=== PATIENT | female | born 1995 | race Caucasian/White ===

== ENCOUNTER 2016-12-12 10:51 | Emergency (ER) | payer MEDICAID, OTHER ==
[~2016-12-12] VITALS: Ht 157.5 cm; Wt 59.0 kg
[~2016-12-12 10:51] MED LIST: ANAP550T PO; PREN0.01 PO; SENN1TAB11 PO
[2016-12-12 10:54] VITALS: BP 124/74; PULSE 91; RESP 15; TEMP 98.1; O2SAT 98
[2016-12-12] MEDS ORDERED: IPRA0.06 EACH NARE (11:51)
[2016-12-12] MEDS ORDERED: AMOX875T PO (11:51)
--- NOTE | 2016-12-12 11:51 | PD ---
HPI Chief Complaint: Cold / Flu Symptoms Time Seen by Provider: 11:46 Travel History International Travel<30 days: No Contact w/Intl Traveler<30days: No Traveled to known affect area: No History of Present Illness HPI Patient's 21-year-old female presenting to emergency Department with 8 days of nasal congestion, cough, sinus pressure. Patient denies any documented fevers, nausea, vomiting, abdominal pain, chest pain or shortness of breath. Patient states she's been using NyQuil with no relief of her symptoms. She has no other complaints at this time. [facility] Past Medical History Medical History: Denies Significant Hx ?: Not LMP: UNKNOWN - IUD Social History Alcohol Use: No Tobacco Use: Yes Substance Use: No Allergies-Medications (Allergen,Severity, Reaction): Coded Allergies: No Known Allergies (Unverified , 08/29/13) Reported Meds & Prescriptions Reported Meds & Active Scripts Active Reported Vesna-Colace (Senna/Docusate Sodium) 1 Tab Tab 2 Tab PO HS Vesna-Colace (Senna/Docusate Sodium) 1 Tab Tab 1 Tab PO BID Anaprox Ds (Naproxen Sodium) 550 Mg Tab 550 Mg PO BID Vit ( Plus) (Prenat Multivit/Osage/Iron/Folic Ac) Tab 1 Tab PO DAILY Review of Systems Except as stated in HPI: all other systems reviewed are Neg General / Constitutional: No: Fever, Chills HENT: Positive: Headaches, Rhinitis, Congestion, No: Neck Stiffness, Neck Pain Cardiovascular: No: Chest Pain or Discomfort Respiratory: Positive: Cough, No: Shortness of Breath, Wheezing Gastrointestinal: No: Nausea, Vomiting, Diarrhea, Abdominal Pain Musculoskeletal: No: Myalgias Physical Exam Narrative GENERAL: Well-nourished, well-developed patient. SKIN: Warm and dry. HEAD: Normocephalic. Mild tenderness to palpation over ethmoid and maxillary sinuses. EYES: No scleral icterus. No injection or drainage. ENT: Mucosa pink and moist. No erythema or exudates. No uvular edema. No uvular , palatal, or tonsillar deviation. Airway patent. Nasal turbinates appear normal without nasal blood, purulent drainage or septal hematoma. Cobblestone appearance posterior pharynx NECK: Supple, trachea midline. No JVD or lymphadenopathy. CARDIOVASCULAR: Regular rate and rhythm without murmurs, gallops, or rubs. RESPIRATORY: Breath sounds equal bilaterally. No accessory muscle use. GASTROINTESTINAL: Abdomen soft, non-tender, nondistended. MUSCULOSKELETAL: No cyanosis, or edema. BACK: Nontender without obvious deformity. No CVA tenderness. Data Data Last Documented VS Vital Signs Date Time Temp Pulse Resp B/P Pulse Ox O2 Delivery O2 Flow Rate FiO2 12/12/16 10:54 98.1 91 15 124/74 98 [facility] Medical Decision Making Medical Screen Exam Complete: Yes Emergency Medical Condition: Yes Interpretation(s) Vital Signs Date Time Temp Pulse Resp B/P Pulse Ox O2 Delivery O2 Flow Rate FiO2 12/12/16 10:54 98.1 91 15 124/74 98 Differential Diagnosis Viral URI versus bronchitis versus pneumonia versus sinusitis versus pharyngitis Narrative Course Patient is a 21-year-old female presenting to the emergency department for evaluation of cold symptoms and ongoing for approximately 8 days. Patient has been taking [id number] medications with no significant relief of symptoms. Patient's vital signs are stable. Patient be given amoxicillin for sinusitis. She is encouraged to obtain [id number] Sudafed or similar agent. She is encouraged to follow up with her primary care provider or return to emergency department for any new or worsening symptoms. Patient verbalized understanding of instructions. Patient is stable for discharge. Diagnosis Primary Impression: Acute sinusitis Qualified Code: J01.90 - Acute sinusitis, recurrence not specified, unspecified location Referrals: Primary Care Physician Patient Instructions: General Instructions, Sinusitis (ED) Additional Instructions: Follow-up with a primary doctor Take medications as directed Complete full course of antibiotics as prescribed Obtain [id number] Sudafed or similar nasal decongestant and use as directed Return to emergency department for any new or worsening symptoms Med/Other Pt SpecificInfo: Prescription(s) given Scripts Ipratropium Nasal 0.06% Spray1 Volcano EACH NARE QID #1 BOTTLE Ref 0 For nasal congestion/rhinorrhea Prov:Sharmin Duran 12/12/16 Amoxicillin 875 Mg [id number] Mg PO BID 10 Days Ref 0 Prov:Sharmin Duran 12/12/16 Disposition: 01 DISCHARGE HOME Condition: Stable Sharmin Duran Dec 12, 2016 11:51
== END 2016-12-12 12:36 | disposition home or self-care (01) ==
LOC: NEPB 10:51
DX: J01.90 Acute sinusitis, unspecified (principal); Z72.0 Tobacco use
CPT/HCPCS: 99283

== ENCOUNTER 2016-12-16 19:07 | Emergency (ER) | payer SELFPAY ==
[~2016-12-16] VITALS: Ht 154.9 cm; Wt 59.0 kg
[~2016-12-16 19:07] MED LIST changes: +AMOX875T PO; -ANAP550T PO; +IPRA0.06 EACH NARE; -PREN0.01 PO; -SENN1TAB11 PO
[2016-12-16 19:09] VITALS: BP 124/69; PULSE 84; RESP 16; TEMP 98.4; O2SAT 99
--- NOTE | 2016-12-16 19:29 | PD ---
HPI Chief Complaint: Cold / Flu Symptoms Time Seen by Provider: 19:26 Travel History International Travel<30 days: No Contact w/Intl Traveler<30days: No Traveled to known affect area: No History of Present Illness HPI 21-year-old white female returns to the ER requesting reevaluation for a cold. She states that she's been sick nearly 2 weeks. She was seen on Tuesday given amoxicillin. She states that she has not improved in her symptoms. She states that she feels warm at times but has not documented a fever. She has headaches , runny nose, congestion, sinus pressure, sore throat, cough, some shortness of breath and wheezing, and posttussive emesis. She denies any nausea. No abdominal pain or diarrhea. No dysuria or frequency. She is a smoker. History Past Medical Histgory Narrative Medical Bronchitis Tetanus Vaccination: < 5 Years LMP: 01/10/17 Past Surgical History Surgical History: No Previous Surgery Social History Alcohol Use: No Tobacco Use: Yes Allergies-Medications (Allergen,Severity, Reaction): Coded Allergies: No Known Allergies (Unverified , 08/29/13) Reported Meds & Prescriptions Reported Meds & Active Scripts Active Ipratropium Nasal 0.06% Remlap 1 Remlap EACH NARE QID For nasal congestion/rhinorrhea Amoxicillin 875 Mg Tab 875 Mg PO BID 10 Days Review of Systems Except as stated in HPI: all other systems reviewed are Neg Physical Exam Narrative GENERAL: Well-developed, well-nourished in no acute distress. Nontoxic appearing. HEAD: Normocephalic, atraumatic. EYES: Pupils equal round and reactive. Extraocular motions intact. No scleral icterus. No injection or drainage. ENT: TMs clear without erythema. The external auditory canals clear. Nose: clear . Posterior pharynx is pink and moist. No tonsillar edema or exudate. Uvula midline. Airway patent. NECK: Trachea midline.Supple, nontender, moves head freely. No central bony tenderness or spasm. CARDIOVASCULAR: Regular rate and rhythm without murmurs, gallops, or rubs. RESPIRATORY: Clear to auscultation. Breath sounds equal bilaterally. No wheezes , rales, or rhonchi. GASTROINTESTINAL: Abdomen soft, non-tender, nondistended. No hepato-splenomegaly , or palpable masses. No guarding. EXTREMITIES: No clubbing, cyanosis, or edema. No joint tenderness, effusion, or edema noted. BACK: Nontender without deformity or crepitance. No flank tenderness. Data Data Last Documented VS Vital Signs Date Time Temp Pulse Resp B/P Pulse Ox O2 Delivery O2 Flow Rate FiO2 12/16/16 19:09 98.4 84 16 124/69 99 Room Air MDM Medical Screen Exam Complete: Yes Emergency Medical Condition: No Differential Diagnosis MDM: High Differential diagnoses: Pneumonia, bronchitis, URI, asthma, RAD, legionnaire's disease, SARS, ARDS, influenza, bronchiolitis, RSV,PE,CHF Narrative Course A medical screening exam was performed: At the time of evaluation the presenting medical condition was determined not to be of an emergent nature. The patient was given the option of receiving additional care, but declined. Patient was given options for additional community resources from which to obtain care. The Patient Has Been advised to seek medical attention for their presenting complaint. The patient has been advised to return to the ER at any time if an emergent condition develops. Primary Impression: Encounter for medical screening examination Condition: Stable Jamie Heaton Dec 16, 2016 19:28
== END 2016-12-16 19:43 | disposition left against medical advice (07) ==
LOC: NEPB 19:07
DX: R51 Headache (principal)
CPT/HCPCS: 99281